=== PATIENT | female | born 1995 | race Two or more races ===

== ENCOUNTER 2024-12-23 12:00 | Emergency (ER) | payer MEDICAID, SELFPAY ==
[2024-12-23 12:17] VITALS: BP 135/91; PULSE 81; RESP 19; TEMP 36.9; O2SAT 97; BMI 32.9
--- NOTE | 2024-12-23 12:43 | PD.EDRME ---
Rapid Medical Screening Exam RME Arrival date/time: 12/23/24 12:00 This is a 29-year-old female who comes into the emergency room with complaints of nausea, vomiting, abdominal pain and back pain that started today. I have greeted and performed a focused initial assessment of this patient. Initial appropriate labs ordered at this time. A comprehensive ED assessment and evaluation of the patient and analysis of all test and completion of medical decision making process will be conducted by additional ED provider. Chief Complaint: Abdominal Pain Time Seen by Provider: 12/23/24 12:23 Vital signs: Vital Signs Temperature 98.4 F 12/23/24 12:17 Pulse Rate 81 12/23/24 12:17 Respiratory Rate 19 12/23/24 12:17 Blood Pressure 135/91 H 12/23/24 12:17 Pulse Oximetry (%) 97 12/23/24 12:17 Oxygen Delivery Method Room Air 12/23/24 12:17
[2024-12-23] MEDS: ONDANSETRON ODT 4 MG TABRAP PO (12:49)
[2024-12-23 13:07] LABS: Basophils # (Auto) 0.0 Thou/mm3 (0.0-0.2); Basophils % (Auto) 0 % (0-2.5); Eosinophils # (Auto) 0.2 Thou/mm3 (0.0-0.5); Eosinophils % (Auto) 2 % (0-10); Hematocrit 38.8 % (36.0-46.0); Hemoglobin 13.3 g/dL (12.0-16.0); Immature Granulocytes Auto 0.05 Thou/mm3 (0.00-0.00); Lymphocytes # (Auto) 1.5 Thou/mm3 (1.0-4.8); Lymphocytes % (Auto) 12 % (10-50); Mean Corpuscular HGB Conc 34.3 g/dl (31.0-37.0); Mean Corpuscular Hemoglobin 29.5 pg (25.0-35.0); Mean Corpuscular Volume 86 fL (80-100); Monocytes # (Auto) 0.6 Thou/mm3 (0.0-0.8); Monocytes % (Auto) 4 % (0-12); Neutrophils # (Auto) 10.4 Thou/mm3 (1.8-7.7); Neutrophils % (Auto) 82 % (37-80); Nucleated Red Blood Cell # 0.00 Thou/mm3 (0.00-0.00); Nucleated Red Blood Cell % 0 /100 WBC (0); Platelet Count 247 Thou/mm3 (140-440); RDW Standard Deviation 39.3 fL (36.4-46.3); Red Blood Count 4.51 Miln/mm3 (4.00-5.20); White Blood Count 12.8 Thou/mm3 (3.6-11.0)
[2024-12-23 13:18] LABS: Collection Type, Urine Voided
[2024-12-23 13:27] LABS: Alanine Aminotransferase 70 U/L (10-49); Albumin, Serum 4.6 gm/dL (3.5-5.0); Albumin/Globulin Ratio 1.3 (1.2-2.2); Alkaline Phosphatase 89 U/L (46-116); Anion Gap 13 (7-16); Aspartate Amino Transferase 38 U/L (0-34); BUN/Creatinine Ratio 8 Ratio (12-20); Bilirubin,Total 0.3 mg/dL (0.3-1.2); Blood Urea Nitrogen 8 mg/dL (9-23); Calcium 9.6 mg/dL (8.3-10.6); Calcium (Corrected) 9.6 mg/dL (8.5-10.1); Carbon Dioxide 21.1 mMol/L (20.0-31.0); Chloride 107 mMol/L (98-107); Creatinine (Component) 1.0 mg/dL (0.6-1.3); Estimated Creatinine Clearance 97.6 mL/min (>60); Globulin 3.5 gm/dL (2.3-3.5); Glucose 108 mg/dL (74-106); Lipase 56 U/L (12-53); Osmolality,Calculated 280 (275-295); Potassium 4.6 mMol/L (3.4-5.1); Sodium 141 mMol/L (136-145); Total Protein 8.1 gm/dL (5.7-8.2); eGFR > 60 See Note
[2024-12-23 13:36] LABS: Bacteria,Urine Rare; Bilirubin,Urine Negative (Negative); Blood,Urine 3+ (Negative); Clarity,Urine Turbid (Clear/Hazy); Color,Urine Yellow (Lt Yel-Yel); Culture Indicated,Urine Contaminated; Glucose, Urine Negative (Negative); Ketones,Urine Trace (Negative); Leukocyte Esterase,Urine Positive (Negative); Nitrite,Urine Negative (Negative); PH,Urine 6.0 (5.0-7.0); Protein,Urine 1+ (Neg - Trace); RBC,Urine 905 /hpf (0-3); Specific Gravity,Urine 1.038 (1.001-1.035); Squamous Epithelial Cell,Urine 11 /hpf (0-5); Urobilinogen,Urine Negative mg/dL (0.0-1.0); WBC,Urine 19 /hpf (0-5)
[2024-12-23 13:38] LABS: Amphetamine/Methamp Scrn,U Negative (Negative); Barbiturate Screen,Urine Negative (Negative); Benzodiazepines Screen,Urine Negative (Negative); Benzoylecgonine Screen, Ur Negative (Negative); Fentanyl Screen,Urine Negative (Negative); HCG Qualitative,Urine Negative; Opiate Screen,Urine Negative (Negative); THC Screen,Urine Negative (Negative)
--- NOTE | 2024-12-23 14:06 | XR_ITS ---
Examination: Abdomen sonogram, Limited Date and time of exam: December 25, 2024 1543 hrs. Indications: Right upper abdominal pain beginning 2 days ago Technique: Real-time brar scale transabdominal sonographic images of the upper abdomen obtained. Findings: Gallstones. Normal gallbladder wall. Normal common bile duct. Pancreatic head 2.8 cm. Liver 16.4 cm fatty infiltration. Normal hepatopedal portal venous flow. Patent IVC. Impression: Cholelithiasis, negative for cholecystitis
--- NOTE | 2024-12-23 14:06 | XR_ITS ---
Examination: CT abdomen with intravenous contrast CT pelvis with intravenous contrast 2-D coronal reconstructions 2-D sagittal reconstructions Date and time of exam:December 23, 2024, 1432 hrs. Comparison May 19, 2012 Indications: Onset generalized abdominal pain beginning this morning. CTDI: vol (mGy) 11.7 DLP: (mGycm) 697 Technique: Multiple axial sections of the abdomen and pelvis have been obtained. 64 slice high-resolution scanner used. 3 mm axial sections have been obtained, post intravenous injection 60 cc Isovue-370 2-D sagittal, coronal reconstructions obtained. Low dose protocols were performed. One or more of the following dose reduction techniques were used; automated exposure control, adjustment of the mA and/or KV according to patient size, use of iterative reconstruction technique. Findings: Diffuse fatty infiltration throughout the liver Gallstones Gallbladder wall does not appear thickened No current pancreatitis Normal adrenal glands 3 cm medial right renal cyst Aorta normal size 6 mm fat-containing umbilical hernia Normal appendix No bowel obstruction No diverticulitis Retroverted uterus with intrauterine device satisfactory position Contracted urinary bladder Osseous structures intact Impression: Cholelithiasis, negative for cholecystitis Negative for pancreatitis Normal appendix No bowel obstruction or diverticulitis
[2024-12-23 14:07] VITALS: BP 160/107; PULSE 64; RESP 17; O2SAT 100
--- NOTE | 2024-12-23 14:14 | PD.EDABDPN ---
ED Abdominal Pain RME/HPI General Chief Complaint: Abdominal Pain Stated complaint: GALLBLADDER HURTS Time seen by provider: 12/23/24 12:23 Arrival date/time: 12/23/24 12:00 Limitations: no limitations RME / HPI RME / HPI narrative: 12/23/24 12:00 This is a 29-year-old female who comes into the emergency room with complaints of nausea, vomiting, abdominal pain and back pain that started today. I have greeted and performed a focused initial assessment of this patient. Initial appropriate labs ordered at this time. A comprehensive ED assessment and evaluation of the patient and analysis of all test and completion of medical decision making process will be conducted by additional ED provider. DR. LEDEZMA MAIN ED EVALUATION: 29 year old female with no known past medical history, presenting to the ED with epigastric pain that initially began 2 days ago. The pain was sharp, localized to the epigastric area, and spontaneously resolved. This morning, the patient experienced similar epigastric pain that has remained constant since onset. Pain is primarily located in the epigastric and right upper quadrant areas. Also reports associated nausea and vomiting once, but denies any diarrhea, fever, chills, or changes in bowel habits. Related Data Home Medications ?Medication ?Instructions ?Recorded ?Confirmed vits [id number] fum 1 tab PO QDAY 12/05/19 03/13/20 27 mg iron-folic acid 800 mcg tablet ( Vitamin) ascorbic acid (vitamin C) 500 mg 500 mg PO QDAY 12/12/19 03/13/20 tablet (Vitamin C) ferrous sulfate 325 mg (65 mg 325 mg PO QDAY 12/12/19 03/13/20 iron) tablet (Iron (ferrous sulfate)) Previous Rx's ?Medication ?Instructions ?Recorded ondansetron 4 mg disintegrating 4 mg PO TID PRN nausea and 12/23/24 tablet vomiting #12 tabs tramadol 50 mg tablet 50 mg PO Q6H PRN pain #10 tabs 12/23/24 Allergies Allergy/AdvReac Type Severity Reaction Status Date / Time No Known Allergies Allergy Verified 12/23/24 12:03 Review of Systems Review of Systems Systems Reviewed: All systems reviewed, normal except as documented Past Medical History Past Medical History RESPIRATORY: Positive Asthma and Pneumonia (2018) GASTROINTESTINAL: Positive Hemorrhoids GENITOURINARY: Positive Genitourinary Disorders (hx of uti, and hx urosepsis) REPRODUCTIVE: Positive Previous Pregnancies (ectopic ) HEMATOLOGIC: Positive Blood Disorders and Anemia PSYCHO/SOCIAL: Positive Depression OTHER HISTORY: Positive Blood Transfusions (2units prbc in 2018 with last ) and Chicken Pox Family History FAMILY HISTORY: Positive Family Cardiac Disorders; Negative Family Psychiatric Problems, Family Respiratory Disorders, Family Gastrointestinal Problems, Family Cancer, Family Surgery or Family Anesthesia Reaction Surgical History SURGICAL: Negative Endocrine Surgery, Ear Surgery, Abdominal Surgery, Nephrectomy, Joint Replacement, Neurologic Surgery, Mastectomy, Lumpectomy, Hysterectomy, Tubal Ligation or Section Social History SMOKING STATUS: Never smoker ED Exam General Limitations: Present no limitations General appearance: Present alert and other (Patient leaning forward in bed and appears uncomfortable ) Head Head exam: Present atraumatic, normocephalic and normal inspection Eye Eye exam: Present normal appearance, PERRL and EOMI ENT ENT exam: Present normal exam, normal oropharynx and mucous membranes moist Neck Neck exam: Present normal inspection, full ROM and trachea midline Chest Chest inspection: Present normal inspection and symmetric chest wall rise Respiratory Respiratory exam: Present normal lung sounds bilaterally Cardiovascular Cardiovascular exam: Present regular rate, normal rhythm and normal heart sounds Abdominal Exam Abdominal exam: Present soft, normal bowel sounds and other (epigastric tenderness to palpation, right upper abdominal tenderness) Extremities Exam Extremities exam: Present normal inspection and full ROM Back Exam Back exam: Present normal inspection and full ROM Neurological Exam Neurological exam: Present alert, oriented X3 and CN II-XII intact Psychiatric Psychiatric exam: Present normal affect and normal mood Skin Skin exam: Present warm, dry, intact and normal color Course Quality Measures none Orders Category Date Time Status CT Screening NOW Care 12/23/24 14:[address] abdomen pelvis w con Stat Exams 12/23/24 14:06 Completed US abdomen limited Stat Exams 12/23/24 14:06 Completed Alcohol, Blood Medical Stat Lab 12/23/24 12:51 Completed CBC Stat Lab 12/23/24 12:51 Completed Comprehensive Metabolic Panel Stat Lab 12/23/24 12:51 Completed Drug Screen,Urine Stat Lab 12/23/24 13:13 Completed HCG Qualitative,Urine Stat Lab 12/23/24 13:13 Completed Lipase Stat Lab 12/23/24 12:51 Completed Lipid Panel Stat Lab 12/23/24 12:51 Completed Urinalysis, C/S if Indicated Stat Lab 12/23/24 13:13 Completed HYDROmorphone INJ [Dilaudid Inj] Med 12/23/24 14:06 Discontinued 1 mg IVP X1 ONE Metoclopramide Inj [Reglan Inj] Med 12/23/24 14:06 Discontinued 10 mg IVP X1 ONE Ondansetron Odt [Zofran Odt] Med 12/23/24 12:41 Discontinued 4 mg PO X1 ONE Reevaluation(s) Reevaluation #1: Patient states her pain has improved a lot and is comfortably resting. We reviewed all the results, analysis, and treatment plans. Patient is amenable to discharge. Strict return precautions were outlined. Patient was discharged in stable condition. Time: 16:53 Vital Signs Vital signs: Vital Signs Temperature 98.4 F 12/23/24 12:17 Pulse Rate 81 12/23/24 12:17 Respiratory Rate 19 12/23/24 12:17 Blood Pressure 135/91 H 12/23/24 12:17 Pulse Oximetry (%) 97 12/23/24 12:17 Oxygen Delivery Method Room Air 12/23/24 12:17 Pulse ox is 97% on room air which is adequate. Abdominal Pain MDM MDM Narrative MDM Narrative:: Gladys Conrad am scribing for and in the presence of Dr. Ledezma. Patient data External records reviewed:: [facility] previous records (I reviewed ED visit on 10/13/2021 for anxiety ) Clinical information provided by:: patient Social determinants that could affect healthcare access:: none Patient has the following chronic illnesses:: None reported How is presenting disease/condition affected by chronic disease/condition?: no chronic disease Evaluation data The following diagnostics were reviewed and interpreted by me:: lab results and radiology exam(s) Lab and/or radiology exams considered but not ordered:: None Interpretation Summary: Ordering Physician: Francis Ledezma MD Date of Service: 12/23/24 Procedure(s): CT abdomen pelvis w con Accession Number(s): [id number] cc: Onel Phelps MD; Francis Ledezma MD; Guy Ewing MD~ Examination: CT abdomen with intravenous contrast CT pelvis with intravenous contrast 2-D coronal reconstructions 2-D sagittal reconstructions Date and time of exam:December 23, 2024, 1432 hrs. Comparison May 19, 2012 Indications: Onset generalized abdominal pain beginning this morning. CTDI: vol (mGy) 11.7 DLP: (mGycm) 697 Technique: Multiple axial sections of the abdomen and pelvis have been obtained. 64 slice high-resolution scanner used. 3 mm axial sections have been obtained, post intravenous injection 60 cc Isovue-370 2-D sagittal, coronal reconstructions obtained. Low dose protocols were performed. One or more of the following dose reduction techniques were used; automated exposure control, adjustment of the mA and/or KV according to patient size, use of iterative reconstruction technique. Findings: Diffuse fatty infiltration throughout the liver Gallstones Gallbladder wall does not appear thickened No current pancreatitis Normal adrenal glands 3 cm medial right renal cyst Aorta normal size 6 mm fat-containing umbilical hernia Normal appendix No bowel obstruction No diverticulitis Retroverted uterus with intrauterine device satisfactory position Contracted urinary bladder Osseous structures intact Impression: Cholelithiasis, negative for cholecystitis Negative for pancreatitis Normal appendix No bowel obstruction or diverticulitis Dictated By: Guy Ewing MD Signed By: <Electronically signed by Guy Ewing MD in OV> 12/23/24 1447 Ordering Physician: Francis Ledezma MD Date of Service: 12/23/24 Procedure(s): US abdomen limited Accession Number(s): [id number] cc: Onel Phelps MD; Francis Ledezma MD; Guy Ewing MD~ Examination: Abdomen sonogram, Limited Date and time of exam: December 25, 2024 1543 hrs. Indications: Right upper abdominal pain beginning 2 days ago Technique: Real-time brar scale transabdominal sonographic images of the upper abdomen obtained. Findings: Gallstones. Normal gallbladder wall. Normal common bile duct. Pancreatic head 2.8 cm. Liver 16.4 cm fatty infiltration. Normal hepatopedal portal venous flow. Patent IVC. Impression: Cholelithiasis, negative for cholecystitis Dictated By: Guy Ewing MD Signed By: <Electronically signed by Guy Ewing MD in OV>12/23/24 1628 Medications / Prescriptions Medications or Prescriptions considered but not ordered:: None Medication administrations:: Medication Administration History Discontinued Medications Hydromorphone HCl (Hydromorphone Inj 2 Mg/Ml Vial) 1 mg IVP X1 ONE Stop: 12/23/24 14:07 Last Admin: 12/23/24 14:23 Dose: 1 mg Documented By: EF Metoclopramide HCl (Metoclopramide Inj 5 Mg/Ml Vial 2 Ml) 10 mg IVP X1 ONE; Protocol Stop: 12/23/24 14:07 Last Admin: 12/23/24 14:23 Dose: 10 mg Documented By: EF Ondansetron HCl (Ondansetron Odt 4 Mg Tabrap) 4 mg PO X1 ONE; Protocol Stop: 12/23/24 12:42 Last Admin: 12/23/24 12:49 Dose: 4 mg Documented By: MF See above Consultations Consultation(s) initiated? (list below): No Diagnosis Differential diagnosis abdominal pain: abdominal pain, gastroenteritis and pancreatitis Most likely diagnosis given after review of the tests above:: Biliary colic Admission Indicated Admission indicated?: not indicated Admission Request Was there a request for admission?: No Disposition Plan Disposition Plan: Discharge Discharge Attestation Discharge Attestation: The patient and all family members were given an opportunity to ask questions and understood the discharge instructions. Discharge instructions specifically effects, indications for sooner follow up or return to the emergency department, and the expected course of current diagnosis. Patient condition: Stable Discharge Plan Plan Patient Disposition: HOME (Self Care) Patient condition on transfer: Stable Prescriptions/Referrals Prescriptions/Med Rec: New tramadol 50 mg tablet 50 mg PO Q6H PRN (Reason: pain) Qty: 10 0RF ondansetron 4 mg tablet,disintegrating 4 mg PO TID PRN (Reason: nausea and vomiting) Qty: 12 0RF No Action Vitamin 27 mg iron- 800 mcg Tablet 1 tab PO QDAY ascorbic acid (vitamin C) [Vitamin C] 500 mg Tablet 500 mg PO QDAY ferrous sulfate [Iron (ferrous sulfate)] 325 mg (65 mg iron) Tablet 325 mg PO QDAY Referrals: Onel Phelps MD [Primary Care Provider] - In 1 week Problem List Clinical Impression: Biliary colic Patient/Caregiver Discharge Instructions Discharge Activity: activity as tolerated Education Materials: ED Gallstones with Biliary Colic Additional Instructions: Follow-up with your primary care doctor in 3 to 5 days for recheck. You can return to the emergency department sooner if symptoms worsen or if you notice any new, concerning issues. Print Language: Eritrean Stand Alone Forms: [facility] Award Info., Patient Portal Info Letter
[2024-12-23] MEDS: HYDROmorphone INJ 2 MG/ML VIAL 1 MG IVP (14:23)
[2024-12-23] MEDS: METOCLOPRAMIDE INJ 5 MG/ML VIAL 2 ML 10 MG IVP (14:23)
[2024-12-23 14:31] LABS: Alcohol, Blood Medical < 3.0 mg/dL (0-10.0); Cardiac Risk Estimate 3.7 RATIO (3.7-5.6); Cholesterol 200 mg/dL (132-200); HDL Cholesterol 54 mg/dL (40-60); LDL Cholesterol,Calculated 101 mg/dL (0-130); Triglycerides 223 mg/dL (30-150)
[2024-12-23 15:08] VITALS: BP 152/89; PULSE 51; RESP 18; TEMP 37.2; O2SAT 100
[2024-12-23 16:55] VITALS: BP 138/78; PULSE 63; RESP 18; TEMP 36.8; O2SAT 100
== END 2024-12-23 17:07 | disposition home or self-care (01) ==
PROVIDERS: Nurse Practitioner Family; Emergency Provider Emergency Medicine; PCP Family Medicine; Referring Provider Emergency Medicine
DX: K80.70 Calculus of gallbladder and bile duct without cholecystitis without obstruction (principal)
CPT/HCPCS: 36415; 74177; 76705; 80053; 80061; 80307; 80320; 81001; 81025; 83690; 85025; 96374; 96375; 99285; A4649; J1171; J2765; Q0162; Q9967; G0480

== ENCOUNTER 2025-02-05 07:30 | Day surgery (SDC) | payer MEDICAID, SELFPAY ==
[2025-02-04 08:50] VITALS: BMI 32.8
[2025-02-04 09:48] LABS: Basophils # (Auto) 0.0 Thou/mm3 (0.0-0.2); Basophils % (Auto) 1 % (0-2.5); Eosinophils # (Auto) 0.4 Thou/mm3 (0.0-0.5); Eosinophils % (Auto) 6 % (0-10); Hematocrit 37.6 % (36.0-46.0); Hemoglobin 12.0 g/dL (12.0-16.0); Immature Granulocytes Auto 0.01 Thou/mm3 (0.00-0.00); Lymphocytes # (Auto) 2.0 Thou/mm3 (1.0-4.8); Lymphocytes % (Auto) 31 % (10-50); Mean Corpuscular HGB Conc 31.9 g/dl (31.0-37.0); Mean Corpuscular Hemoglobin 29.3 pg (25.0-35.0); Mean Corpuscular Volume 92 fL (80-100); Monocytes # (Auto) 0.3 Thou/mm3 (0.0-0.8); Monocytes % (Auto) 5 % (0-12); Neutrophils # (Auto) 3.8 Thou/mm3 (1.8-7.7); Neutrophils % (Auto) 58 % (37-80); Nucleated Red Blood Cell # 0.00 Thou/mm3 (0.00-0.00); Nucleated Red Blood Cell % 0 /100 WBC (0); Platelet Count 258 Thou/mm3 (140-440); RDW Standard Deviation 43.2 fL (36.4-46.3); Red Blood Count 4.10 Miln/mm3 (4.00-5.20); White Blood Count 6.5 Thou/mm3 (3.6-11.0)
[2025-02-04 10:02] LABS: Alanine Aminotransferase 69 U/L (10-49); Albumin, Serum 4.4 gm/dL (3.5-5.0); Albumin/Globulin Ratio 1.6 (1.2-2.2); Alkaline Phosphatase 82 U/L (46-116); Anion Gap 10 (7-16); Aspartate Amino Transferase 36 U/L (0-34); BUN/Creatinine Ratio 11 Ratio (12-20); Bilirubin,Total 0.3 mg/dL (0.3-1.2); Blood Urea Nitrogen 9 mg/dL (9-23); Calcium 9.9 mg/dL (8.3-10.6); Calcium (Corrected) 9.9 mg/dL (8.5-10.1); Carbon Dioxide 27.4 mMol/L (20.0-31.0); Chloride 106 mMol/L (98-107); Creatinine (Component) 0.8 mg/dL (0.6-1.3); Estimated Creatinine Clearance 117.8 mL/min (>60); Globulin 2.7 gm/dL (2.3-3.5); Glucose 97 mg/dL (74-106); Osmolality,Calculated 283 (275-295); Potassium 4.2 mMol/L (3.4-5.1); Sodium 143 mMol/L (136-145); Total Protein 7.1 gm/dL (5.7-8.2); eGFR > 60 See Note
[2025-02-04 10:45] LABS: HCG,Qualitative Serum Negative
[2025-02-05] VITALS (9 sets, daily range): BP systolic 116–135; BP diastolic 58–85; PULSE 51–89; RESP 12–18; TEMP 36.2–37.2; O2SAT 96–100; BMI 32.8
[2025-02-05] MEDS: RINGERS LACTATED 1000 ML 1,000 ML 20 ML IV (08:24)
--- NOTE | 2025-02-05 10:07 | SUR.PHASEI ---
pt received from OR in recovery bay 2. pt obtunded, breathing unlabored on oxymask 8l, oral airway in place. v/s stable. pt dressing to abd dermabond x4 cdi. report received from Dr. Nj and Mani TORRES.
--- NOTE | 2025-02-05 10:14 | PD.SUROPNT ---
Date of Procedure 02/05/25 Pre Op Diagnosis Symptomatic cholelithiasis Post Op Diagnosis Cholelithiasis with cholecystitis Hydrops of the gallbladder Procedure Laparoscopic cholecystectomy Findings Distended and thick-walled gallbladder with a stone at the neck of the gallbladder causing hydrops of the gallbladder. Procedure Description Patient was brought into the operating room in supine position. After administration of general endotracheal anesthesia abdomen was prepped and draped in standard surgical manner. A Veress needle was inserted through the umbilicus and pneumoperitoneum was obtained up to 15 mmHg. The Veress needle was then removed, a 5 mm infraumbilical incision was made and the 5mm trocar was inserted. Laparoscopic camera was placed. Under direct visualization a laparoscopic camera a 10 mm trocar was placed in subxiphoid and two 5 mm trocars placed in right upper quadrant. The gallbladder was identified and was noted to be moderately distended and thick-walled. There was a stone at the neck of the gallbladder causing hydrops of the gallbladder. The gallbladder was decompressed with an aspirator, the contents were clear fluid consistent with hydrops of the gallbladder. It was retracted cephalad and laterally. Dissection started near the infundibulum of gallbladder where cystic duct and gallbladder junction clearly identified. The cystic duct was circumferentially dissected off the peritoneum and surrounding inflammatory tissue. The critical view of safety was clearly demonstrated. Cystic duct was then divided between 2 endoclips proximally and one distally. The cystic artery was similarly dissected and divided. The gallbladder was then from the liver bed using electrocautery. The gallbladder was then placed inside an Endo Catch and removed from the abdomen utilizing subxiphoid trocar site. The area was copiously and thoroughly washed and irrigated, all the fluid was suctioned and the suction fluid returned clear. Hemostasis achieved using electrocautery, also topical hemostatic agent using snow Surgicel placed at the gallbladder fossa to further assure hemostasis. Endoclips noted be in place and intact without any bleeding or any leakage. Hemostasis was adequate and satisfactory. The subxiphoid trocar sites fascial defect was closed with 0 Vicryl using Endo Closure device. Instruments and trocars removed, pneumoperitoneum was evacuated and the incisions closed with 4-0 Monocryl in subcuticular fashion. Instrument needle and sponge counts were all reported to be correct X2. Patient tolerated the procedure well, was extubated, breathing spontaneously and without difficulty and was transferred to postanesthesia care in stable condition. Anesthesia GETA and local Pathology / specimen Other (Gallbladder and contents) Estimated Blood Loss 20 Condition Stable Disposition PACU Surgeon Wei Morfin MD Surgical Staff Operation Date: 02/05/25 09:30 Case Staff Anesthesiologist: Todd Nj RN First Assistant: Mady Noriega
[2025-02-05] MEDS: fentaNYL CIT INJ 50 mCg/ML AMP 2ML 25 MCG IVP (10:33)
--- NOTE | 2025-02-05 10:42 | SUR.PHASEII ---
pt able to tolerate oral fluids without difficulty swallowing or nausea/vomiting.
--- NOTE | 2025-02-05 11:30 | SUR.PHASEII ---
pt awake and alert, breathing unlabored on room air. v/s stable. pt dressing to abd dermabond x4 cdi. pt able to ambulate to wheelchair with steady gait. d/c instructions given with mother Erica in room, all questions answered. pt d/c via wheelchair with all belongings.
== END 2025-02-05 11:30 | disposition home or self-care (01) ==
PROVIDERS: PCP Family Medicine; Referring Provider Surgery; Visit Provider Surgery
PROC: 0FT44ZZ Resection of Gallbladder, Percutaneous Endoscopic Approach (ICD-10-PCS; CPT 47562; principal; 2025-02-05 09:30)
DX: K80.10 Calculus of gallbladder with chronic cholecystitis without obstruction (principal); K82.1 Hydrops of gallbladder
CPT/HCPCS: 47562; 36415; 80053; 84703; 85025; A4217; A4649; J0131; J0694; J1100; J1885; J2250; J2405; J2704; J3010; J3490; J7120

== ENCOUNTER 2025-02-08 09:50 | Emergency (ER) | payer MEDICAID, SELFPAY ==
[2025-02-08 09:51] VITALS: BMI 32.4
[2025-02-08 10:08] VITALS: BP 126/82; PULSE 88; RESP 18; TEMP 36.9; O2SAT 99
--- NOTE | 2025-02-08 10:11 | XR_ITS ---
Examination: Duplex scan of the lower extremity, unilateral right Date and time of exam: February 09, 2000 2512 noon INDICATIONS: Right calf swelling and pain beginning last night Technique: Duplex scan of the extremity veins using B-mode/grayscale imaging and Doppler spectral analysis and color flow Attention is directed to internal echogenicity, compression and augmentation involving these veins, color flow assessment, spectral analysis Findings: Major deep venous structures in the extremity demonstrate normal course and caliber. There is no evidence of deep vein thrombosis. Normal color flow and spectral analysis Impression: Negative for DVT..
--- NOTE | 2025-02-08 10:11 | XR_ITS ---
Examination: CT abdomen with intravenous contrast CT pelvis with intravenous contrast 2-D coronal reconstructions 2-D sagittal reconstructions Date and time of exam:February 08, 2025 1301 hours INDICATIONS: Cholecystectomy February 06, 2024, abdominal pain and distention after surgery CTDI: vol (mGy) 10.7 DLP: (mGycm) 645 Technique: Multiple axial sections of the abdomen and pelvis have been obtained. 64 slice high-resolution scanner used. 3 mm axial sections have been obtained, post intravenous injection 60 cc Isovue-370 2-D sagittal, coronal reconstructions obtained. Low dose protocols were performed. One or more of the following dose reduction techniques were used; automated exposure control, adjustment of the mA and/or KV according to patient size, use of iterative reconstruction technique. Findings: Mild fluid in the gallbladder fossa, 11 mm in thickness Surgical clips gallbladder fossa No focal liver or splenic lesions No pancreatic or adrenal mass 26 mm right renal cyst Aorta normal size No bowel obstruction Normal appendix No diverticulitis Retroverted uterus with intrauterine device satisfactory position 20 mm right adnexal cyst Urinary bladder intact IMPRESSION: Minimal fluid in the gallbladder fossa, consider follow-up CT examination of the abdomen postcontrast in 2-3 days
--- NOTE | 2025-02-08 10:12 | PD.EDRME ---
Rapid Medical Screening Exam RME Arrival date/time: 02/08/25 09:50 Chief Complaint: Extremity Problem,Nontraumatic Time Seen by Provider: 02/08/25 10:04 Vital signs: Vital Signs Temperature 98.5 F 02/08/25 10:08 Pulse Rate 88 02/08/25 10:08 Respiratory Rate 18 02/08/25 10:08 Blood Pressure 126/82 02/08/25 10:08 Pulse Oximetry (%) 99 02/08/25 10:08 Oxygen Delivery Method Room Air 02/08/25 10:08 RME Narrative: Patient is a 29-year-old female is in emerged primary concerns for abdominal pain and right lower extremity pain worsening over the last week. Patient had a cholecystectomy by Dr. Morfin last week. Patient is not taking blood thinners. No significant past medical history, no allergies to medications. No fevers chills nausea vomiting chest pain dysuria hematuria melena bloody stools
[2025-02-08 10:47] LABS: Basophils # (Auto) 0.0 Thou/mm3 (0.0-0.2); Basophils % (Auto) 1 % (0-2.5); Eosinophils # (Auto) 0.3 Thou/mm3 (0.0-0.5); Eosinophils % (Auto) 4 % (0-10); Hematocrit 37.8 % (36.0-46.0); Hemoglobin 12.3 g/dL (12.0-16.0); Immature Granulocytes Auto 0.03 Thou/mm3 (0.00-0.00); Lymphocytes # (Auto) 2.3 Thou/mm3 (1.0-4.8); Lymphocytes % (Auto) 27 % (10-50); Mean Corpuscular HGB Conc 32.5 g/dl (31.0-37.0); Mean Corpuscular Hemoglobin 29.3 pg (25.0-35.0); Mean Corpuscular Volume 90 fL (80-100); Monocytes # (Auto) 0.6 Thou/mm3 (0.0-0.8); Monocytes % (Auto) 7 % (0-12); Neutrophils # (Auto) 5.5 Thou/mm3 (1.8-7.7); Neutrophils % (Auto) 62 % (37-80); Nucleated Red Blood Cell # 0.00 Thou/mm3 (0.00-0.00); Nucleated Red Blood Cell % 0 /100 WBC (0); Platelet Count 242 Thou/mm3 (140-440); RDW Standard Deviation 42.7 fL (36.4-46.3); Red Blood Count 4.20 Miln/mm3 (4.00-5.20); White Blood Count 8.8 Thou/mm3 (3.6-11.0)
[2025-02-08 11:12] LABS: Alanine Aminotransferase 82 U/L (10-49); Albumin, Serum 4.5 gm/dL (3.5-5.0); Albumin/Globulin Ratio 1.4 (1.2-2.2); Alkaline Phosphatase 83 U/L (46-116); Anion Gap 10 (7-16); Aspartate Amino Transferase 48 U/L (0-34); BUN/Creatinine Ratio 6 Ratio (12-20); Bilirubin,Total 0.5 mg/dL (0.3-1.2); Blood Urea Nitrogen < 5 mg/dL (9-23); Calcium 10.0 mg/dL (8.3-10.6); Calcium (Corrected) 10.0 mg/dL (8.5-10.1); Carbon Dioxide 26.4 mMol/L (20.0-31.0); Chloride 105 mMol/L (98-107); Creatinine (Component) 0.9 mg/dL (0.6-1.3); Estimated Creatinine Clearance 104.0 mL/min (>60); Globulin 3.2 gm/dL (2.3-3.5); Glucose 90 mg/dL (74-106); Lipase 37 U/L (12-53); Osmolality,Calculated 278 (275-295); Potassium 4.5 mMol/L (3.4-5.1); Sodium 141 mMol/L (136-145); Total Protein 7.7 gm/dL (5.7-8.2); eGFR > 60 See Note
[2025-02-08 11:16] LABS: Collection Type, Urine Clean Catch
[2025-02-08 11:33] LABS: Bacteria,Urine 3+; Bilirubin,Urine Negative (Negative); Blood,Urine Negative (Negative); Color,Urine Lt-Yellow (Lt Yel-Yel); Culture Indicated,Urine Contaminated; Glucose, Urine Negative (Negative); Hyaline Casts,Urine < 1 /hpf (0-1); Ketones,Urine Negative (Negative); Leukocyte Esterase,Urine Positive (Negative); Nitrite,Urine Negative (Negative); PH,Urine 6.5 (5.0-7.0); Protein,Urine Negative (Neg - Trace); RBC,Urine 7 /hpf (0-3); Specific Gravity,Urine 1.004 (1.001-1.035); Squamous Epithelial Cell,Urine 42 /hpf (0-5); Urobilinogen,Urine Negative mg/dL (0.0-1.0); WBC,Urine 6 /hpf (0-5)
[2025-02-08 11:37] LABS: Clarity,Urine Hazy (Clear/Hazy)
[2025-02-08 11:41] LABS: HCG,Qualitative Serum Negative
--- NOTE | 2025-02-08 15:20 | PD.EDEXREM ---
ED Extremity Problem RME/HPI General Chief complaint: Extremity Problem,Nontraumatic Stated complaint: RIGHT CALF PAIN x 2 DAYS, SURG 02/05 FOR [facility] Time Seen by Provider: 02/08/25 10:04 Arrival date/time: 02/08/25 09:50 Limitations: no limitations RME / HPI RME / HPI Narrative: Patient is a 29-year-old female is in emerged primary concerns for abdominal pain and right lower extremity pain worsening over the last week. Patient had a cholecystectomy by Dr. Morfin last week. Patient is not taking blood thinners. No significant past medical history, no allergies to medications. No fevers chills nausea vomiting chest pain dysuria hematuria melena bloody stools Related Data Previous Rx's ?Medication ?Instructions ?Recorded ciprofloxacin HCl 500 mg tablet 500 mg PO BID #14 tabs 02/05/25 (Cipro) docusate sodium 100 mg capsule 100 mg PO BID #30 caps 02/05/25 (Colace) hydrocodone 5 mg-acetaminophen 325 1 tab PO Q6H PRN pain (scale score 02/05/25 mg tablet 7-10) #15 tabs ibuprofen 600 mg tablet 600 mg PO Q8H PRN pain (scale 02/05/25 score 4-6) #15 tabs Allergies Allergy/AdvReac Type Severity Reaction Status Date / Time No Known Allergies Allergy Verified 02/08/25 09:53 ED Exam General Limitations: Present no limitations General appearance: Present alert and in no apparent distress Head Head exam: Present atraumatic and normocephalic Eye Eye exam: Present normal appearance ENT ENT exam: Present normal exam, normal oropharynx and mucous membranes moist Neck Neck exam: Present normal inspection and full ROM Chest Chest inspection: Present symmetric chest wall rise Respiratory Respiratory exam: Present normal lung sounds bilaterally Cardiovascular Cardiovascular exam: Present regular rate and normal rhythm Abdominal Exam Abdominal exam: Present soft and tenderness; Absent distention, guarding or rebound Extremities Exam Extremities exam: Present normal inspection, full ROM and tenderness (Tenderness palpation along the right calf) Neurological Exam Neurological exam: Present alert, oriented X3, CN II-XII intact and normal gait Psychiatric Psychiatric exam: Present normal affect Skin Skin exam: Present warm and dry Course Quality Measures none Orders Category Date Time Status CT Screening NOW Care 02/08/25 10:[address] abdomen pelvis w con Stat Exams 02/08/25 10:11 Completed US venous doppler LE RT Stat Exams 02/08/25 10:11 Completed CBC Stat Lab 02/08/25 10:38 Completed CMP [Comprehensive Metabolic Panel] Stat Lab 02/08/25 10:38 Completed HCG,Qualitative Serum Stat Lab 02/08/25 10:38 Completed Lipase Stat Lab 02/08/25 10:38 Completed UA, C/S IF [Urinalysis, C/S if Indicated] Stat Lab 02/08/25 11:00 Completed HYDROcodone*/APAP 5/325 [[place] 5/325] Med 02/08/25 15:26 Discontinued 1 tab PO X1 ONE Vital Signs Vital signs: Vital Signs Temperature 98.5 F 02/08/25 10:08 Pulse Rate 88 02/08/25 10:08 Respiratory Rate 18 02/08/25 10:08 Blood Pressure 126/82 02/08/25 10:08 Pulse Oximetry (%) 99 02/08/25 10:08 Oxygen Delivery Method Room Air 02/08/25 10:08 Extremity Problem MDM Narrative MDM Narrative:: Patient is a 29-year-old female exam emergency room concerns for abdominal pain, and right lower leg pain after having had a cholecystectomy. Vital signs and exam as listed. Concern for intra-abdominal abscess, perforation, DVT among others. Ordered labs, CT abdomen pelvis as well as medication for symptom relief. Labs without acute hematologic or significant metabolic abnormality. Patient with AST 48, ALT 82. Progressively have been uptrending. Alk phos normal, T. bili normal, patient is not , lipase not elevated, urinalysis with evidence of leuk esterase, nitrate -7 RBCs, 6 WBCs 42 squames 3+ bacteria concern for contamination. Ultrasound of the lower extremity without evidence of DVT. CT abdomen pelvis with mild fluid in the gallbladder fossa, surgical clips present, no liver or splenic lesions, patient has a 26 mm right renal cyst, no evidence of bowel obstruction, urinary bladder is intact. 3:24p consulted Dr. Morfin (performed cholecystectomy) reviewed workup and patient presentation. States that patient can discharge to home and can follow-up with Dr. Morfin this week in clinic. On reevaluation patient hemodynamically stable, not in distress will discharge to home close return precautions follow-up with a primary care doctor. Patient agreement with treatment plan. Patient data External records reviewed:: [facility] previous records Clinical information provided by:: patient Social determinants that could affect healthcare access:: none Patient has the following chronic illnesses:: None How is presenting disease/condition affected by chronic disease/condition?: uneffected by Evaluation data The following diagnostics were reviewed and interpreted by me:: lab results and radiology exam(s) Lab and/or radiology exams considered but not ordered:: None Interpretation Summary: CMP Medications / Prescriptions Medications or Prescriptions considered but not ordered:: None Medication administrations:: Medication Administration History Discontinued Medications Hydrocodone Bitart/Acetaminophen (Hydrocodone/Apap 5/325 Tablet) 1 tab PO X1 ONE Stop: 02/08/25 15:27 None Consultations Consultation(s) initiated? (list below): Yes Diagnosis Most likely diagnosis given after review of the tests above:: See MDM Admission Indicated Admission indicated?: not indicated Admission Request Was there a request for admission?: No Disposition Plan Disposition Plan: Discharge Discharge Attestation Discharge Attestation: The patient and all family members were given an opportunity to ask questions and understood the discharge instructions. Discharge instructions specifically effects, indications for sooner follow up or return to the emergency department, and the expected course of current diagnosis. Patient condition: Stable Discharge Plan Plan Patient Disposition: HOME (Self Care) Prescriptions/Referrals Prescriptions/Med Rec: No Action docusate sodium [Colace] 100 mg capsule 100 mg PO BID Qty: 30 0RF ibuprofen 600 mg tablet 600 mg PO Q8H PRN (Reason: pain (scale score 4-6)) Qty: 15 0RF hydrocodone-acetaminophen 5-325 mg tablet 1 tab PO Q6H MDD 4 PRN (Reason: pain (scale score 7-10)) Qty: 15 0RF ciprofloxacin HCl [Cipro] 500 mg tablet 500 mg PO BID Qty: 14 0RF Referrals: Kevin Carballo PA-C [Primary Care Provider] - In 1 week Problem List Clinical Impression: Abdominal pain, Transaminitis, Acute leg pain Patient/Caregiver Discharge Instructions Education Materials: Abdominal Pain Additional Instructions: Please follow-up with your surgeon Dr. Morfin in his office this week. Return immediately if you develop fevers chills worsening abdominal pain or any other symptom of concern Print Language: Beninese Stand Alone Forms: [facility] Award Info., Patient Portal Info Letter
[2025-02-08] MEDS: HYDROcodone/APAP 5/325 TABLET 1 TAB PO (15:49)
== END 2025-02-08 16:13 | disposition home or self-care (01) ==
PROVIDERS: Emergency Provider Emergency Medicine; PCP Physician Assistant
DX: M79.661 Pain in right lower leg (principal); R10.9 Unspecified abdominal pain; R74.01 Elevation of levels of liver transaminase levels; N28.1 Cyst of kidney, acquired; Z90.49 Acquired absence of other specified parts of digestive tract
CPT/HCPCS: 36415; 74177; 80053; 81001; 83690; 84703; 85025; 93971; 99283; A4649; Q9967; A9270